=== PATIENT | female | born 1980 | race Caucasian/White ===

== ENCOUNTER 2019-09-08 15:53 | Emergency (ER) | payer BC, SELFPAY ==
[2019-09-08 16:00] VITALS: BP 143/89; PULSE 84; RESP 20; TEMP 37.1; O2SAT 100
--- NOTE | 2019-09-08 16:20 | ED.DENTAL ---
HPI - Dental/Oral General Chief complaint: Dental/Oral Stated complaint: toothache and glucose problems Time Seen by Provider: 09/08/19 16:20 Source: patient and RN notes reviewed Mode of arrival: ambulatory Limitations: no limitations History of Present Illness HPI Narrative: This is a 38 years old female presents to the office for an evaluation of dental pain for two weeks. Worse for the last three days. States, she needs a root canal done; but her dentist told her to go to [facility] to get antibiotic first. Since she is here; she would like to know if i can restart her diabetic medication/rechecking her A1C. She was diagnosed with diabetes about a year ago and went on medication for 4 months, she was doing well with diet and weight loss so her doctor took her off her diabetes medication. For the last couple months, she has been stressing out due to work and pandemic, she has not been feeling too well. She thinks her blood sugar is getting high again because she has been increase thirst and urinary frequency. She also states that she almost passed out at work about a month ago. Her workplace called EMT; whom check her out and told her that her blood sugar was high. She recalls it was around 180s; but she did not go to ER then because she elliot better after she rests. She is between doctor right now and she does not want to go back to her primary care doctor. Related Data Allergies Allergy/AdvReac Type Severity Reaction Status Date / Time morphine Allergy Dyspnea / Verified 09/08/19 16:14 SOB Review of Systems Review of Systems: Narrative: CONSTITUTIONAL: Denies fever ENT: Denies difficulty swallowing/drooling. Reports dental pain CARDIOVASCULAR: Denies chest pain RESPIRATORY: Denies cough GASTROINTESTINAL: Reports nausea and loose stools GENITOURINARY:Reports urinary frequency; denies urgency/painful/blood in the urine SKIN: Denies rash MUSCULOSKELETAL: Denies acute back pain NEUROLOGIC: Denies lightheaded PMFSH Past Medical History Medical History (Updated 09/08/19 @ 16:42 by DAVID Berrios) Diabetes mellitus, type II diet controlled Comments At time of signature, I agree with nursing past medical, surgical, social and family history. There is no relevant family history pertinent to the presenting complaint. Exam Narrative: Exam Narrative: GENERAL: This is a well-nourished, well-developed patient, in no apparent distress. EYES: Sclera and conjunctivae normal ENT: External ears normal. Nose and lips normal. Airway patent.The tooth in question is very carious and the gum is swollen and tender around it. There is no facial swelling, cervical or submandibular lymphadenopathy. CARDIOVASCULAR: Regular rate and rhythm without murmurs, gallops, or rubs. RESPIRATORY: Clear to auscultation. Breath sounds equal bilaterally. No wheezes, rales, or rhonchi. GASTROINTESTINAL: Abdomen soft, non-tender, nondistended. Bowel sounds are active. No hepato-splenomegaly, or palpable masses. No guarding. SKIN: warm, intact with no suspicious lesions or rash, good texture and turgor. NEURO: awake, alert, and oriented to person, place and time. There were no obvious focal neurologic abnormalities. Course Vital Signs Vital signs: Vital Signs Temperature 98.8 F 09/08/19 16:00 Pulse Rate 84 09/08/19 16:00 Respiratory Rate 20 09/08/19 16:00 Blood Pressure 143/89 H 09/08/19 16:00 Pulse Oximetry 100 09/08/19 16:00 Temperature 98.8 F 09/08/19 16:00 Pulse Rate 84 09/08/19 16:00 Respiratory Rate 20 09/08/19 16:00 Blood Pressure 143/89 H 09/08/19 16:00 Pulse Oximetry 100 09/08/19 16:00 MDM - Dental/Oral MDM Narrative Medical decision making narrative: Elevated BP noted: patient is informed that they may have pre-hypertension or hypertension based on a blood pressure reading in the department. I recommend the patient call the primary care provider of their choice this week to arrange follo
== END 2019-09-08 16:38 | disposition home or self-care (01) ==
PROVIDERS: Emergency Provider Nurse Practitioner
DX: K02.9 Dental caries, unspecified (principal); E11.9 Type 2 diabetes mellitus without complications
CPT/HCPCS: 99213; G0463

== ENCOUNTER 2019-10-18 11:51 | Emergency (ER) | payer BC, SELFPAY ==
[2019-10-18 11:59] VITALS: BP 140/82; PULSE 88; RESP 18; TEMP 36.7; O2SAT 99
--- NOTE | 2019-10-18 12:12 | ED.GENADULT ---
HPI - General Adult General Chief complaint: Eye Problems Stated complaint: chills/left eye swollen and red/general fatigue Time Seen by Provider: 10/18/19 12:13 Source: patient and RN notes reviewed Mode of arrival: ambulatory Limitations: no limitations History of Present Illness HPI narrative: This is a 38 years old female presented office for evaluation of left eye irritation for 2 days. Symptoms began watery and itchy eyes which she tried otc eyedrop with no relief. She also took some Iza because her eyelid was swollen which has helped reduced her eyelids swelling/redness. She also reported chills,headache, left eye pressures with photosensitivity. Currently, she wears contact lenses on her right eye because she could not find glasses. Related Data Allergies Allergy/AdvReac Type Severity Reaction Status Date / Time morphine Allergy Dyspnea / Verified 09/24/19 14:07 SOB Review of Systems Review of Systems: Narrative: CONSTITUTIONAL: Denies fever, chills EYES: Denies visual changes ENT: Denies rhinorrhea, congestion, sore throat, otalgia. CARDIOVASCULAR: Denies chest pain RESPIRATORY: Denies dyspnea,cough GASTROINTESTINAL: Denies abdominal pain, nausea, vomiting, diarrhea. GENITOURINARY: Denies urinary symptoms or discharge SKIN: Denies rash MUSCULOSKELETAL: Denies acute back pain NEUROLOGIC: Denies lightheaded All other systems reviewed are negative, except as documented in HPI. [facility] Past Medical History Medical History (Updated 10/18/19 @ 12:25 by DAVID Berrios) Anxiety Depression Diabetes mellitus, type II diet controlled HLD (hyperlipidemia) Surgical History Surgical History H/O shoulder surgery H/O tubal ligation Hx of tonsillectomy Family History Family History Grandparent Heart failure Grandparent Leukemia Grandparent Heart disease Social History Social History Smoking status: Never smoker Alcohol intake: current Substance use: never Comments At time of signature, I agree with nursing past medical, surgical, social and family history. There is no relevant family history pertinent to the presenting complaint. Exam Narrative: Exam Narrative: GENERAL: This is a well-nourished, well-developed patient, in no apparent distress. EYES: PERRL. EMOI. Right Sclera clear/white. Left conjunctive are injected with upper eyelid appear edematous without erythema. Eyelashes extension noted, patient said she had it done a month ago. EARS: External ears normal, auditory canals clear and without drainage, TMs normal without perforation. Hearing grossly intact. NOSE: External nose normal with no obvious nasal discharge, nares without redness, no rhinorrhea. THROAT: Mucous membranes moist, posterior pharynx clear. NECK: Neck supple, non-tender without lymphadenopathy, masses or thyromegaly. CARDIOVASCULAR: Regular rate and rhythm without murmurs, gallops, or rubs. RESPIRATORY: Clear to auscultation. Breath sounds equal bilaterally. No wheezes, rales, or rhonchi. GASTROINTESTINAL: Abdomen soft, non-tender, nondistended. Bowel sounds are active. No hepato-splenomegaly, or palpable masses. No guarding. SKIN: warm, intact with no suspicious lesions or rash, good texture and turgor. NEURO: awake, alert, and oriented to person, place and time. There were no obvious focal neurologic abnormalities. Steady gait Miguel Ángel Coma Scale Eye Opening: Spontaneous 4 Miguel Ángel Coma Scale Motor: Obeys Commands 6 Miguel Ángel Coma Scale Verbal: Oriented 5 Course Vital Signs Vital signs: Vital Signs Temperature 98.1 F 10/18/19 11:59 Pulse Rate 88 10/18/19 11:59 Respiratory Rate 18 10/18/19 11:59 Blood Pressure 140/82 10/18/19 11:59 Pulse Oximetry 99 10/18/19 11:59 Temperature 98.1 F 10/18/19 11:59 Pulse Rate 88 07/0
== END 2019-10-18 12:26 | disposition home or self-care (01) ==
PROVIDERS: Emergency Provider Nurse Practitioner; PCP Family Medicine
DX: H10.12 Acute atopic conjunctivitis, left eye (principal); E11.9 Type 2 diabetes mellitus without complications; E78.00 Pure hypercholesterolemia, unspecified
CPT/HCPCS: 99213; G0463

== ENCOUNTER 2019-11-02 14:39 | Emergency (ER) | payer BC, SELFPAY ==
--- NOTE | ~2019-11-02 | XR_ITS ---
XR chest 2V DATE: 11/02/2019 15:11 INDICATION: Left-sided chest pain, shortness of breath, syncope for a few months, worsening recently TECHNIQUE: PA and lateral views COMPARISON: None FINDINGS: Normal heart size. No hilar or mediastinal enlargement. No pulmonary infiltrate or consolid ation, pleural effusion or pulmonary vascular congestion or pneumothorax. Included skeletal structure s are unremarkable. IMPRESSION: Negative chest Reviewed, dictated and finalized at location A. IMPRESSION: Negative chest
--- NOTE | 2019-11-02 14:43 | ECG_ITS ---
Measurements Intervals [place] Rate: 78 P: 20 [place]: 168 QRS: 44 QRSD: 86 T: 31 QT: 338 QTc: 386 Interpretive Statements SINUS RHYTHM NONSPECIFIC ST ELEVATION IN ANTERIOR LEADS- PROBABLY EARLY REPOLARIZATION BORDERLINE ECG Electronically Signed On 11-02-2019 14:56:30 CDT by Hari Ely D.O.
[2019-11-02 14:44] VITALS: BP 136/92; PULSE 81; RESP 21; TEMP 36.9; O2SAT 100
[2019-11-02 14:47] VITALS: PULSE 81
[2019-11-02] MEDS: ASPIRIN 81 MG CHEWABLE TABLET 324 MG PO (14:52)
--- NOTE | 2019-11-02 15:05 | PC.NURSE ---
Pt to xray via stretcher with radiology
[2019-11-02 15:12] LABS: Basophils Absolute Auto 0.1 K/mm3 (0.0-0.1); Basophils Percent Auto 0.6 % (0.2-1.2); Eosinophils Absolute Auto 0.5 K/mm3 (0-0.3); Eosinophils Percent Auto 4.4 % (0-4.4); Hematocrit 37.8 % (37.0-47.0); Hemoglobin 12.6 g/dL (12.0-15.0); Immature Granulocyte Absolute 0.15 K/mm3 (0.00-0.031); Immature Granulocyte Percent A 1.3 % (0-0.5); Lymphocytes Absolute Auto 2.33 K/mm3 (0.9-3.2); Lymphocytes Percent Auto 20.8 % (18.3-44.2); Mean Corpuscular HGB Conc 33.3 g/dl (32-36); Mean Corpuscular Hemoglobin 29.9 pg (26-34); Mean Corpuscular Volume 89.8 fl (80-100); Mean Platelet Volume 11.8 fl (7.4-10.4); Monocytes Absolute Auto 0.7 K/mm3 (0.1-0.6); Monocytes Percent Auto 6.6 % (2.6-8.5); Neutrophils Absolute Auto 7.4 K/mm3 (1.3-6.7); Neutrophils Percent Auto 66.3 % (45.5-73.1); Platelet Count Result 321 k/mm3 (150-375); Red Blood Count 4.21 M/mm3 (4.2-5.4); White Blood Count 11.2 K/mm3 (4.5-10.0)
[2019-11-02 15:22] LABS: Blood Urea Nitrogen 15 mg/dL (7-17); Calcium 9.2 mg/dL (8.4-10.2); Carbon Dioxide 22 mmol/L (22-30); Chloride 105 mmol/L (98-107); Estimated CRCL calculation 141 ml/min; Estimated Glomerular Filt Rate > 60; Glucose 145 mg/dL (65-105); Potassium 4.2 mmol/L (3.4-5.0); Sodium 135 mmol/L (137-145)
[2019-11-02 15:30] LABS: NT Pro B Type Natriuretic Pept 29 PG/ML (5-100)
[2019-11-02 15:33] LABS: Troponin I < 0.012 ng/mL (0.000-0.034)
[2019-11-02 15:37] LABS: Partial Thromboplastin Time 27.2 SECONDS (22.3-36.8)
--- NOTE | 2019-11-02 15:45 | ED.GENADULT ---
HPI - General Adult General Chief complaint: Chest Pain <Javier Mitchell PA-C - Last Filed: 11/02/19 16:02> Stated complaint: short of breath, chest pain, syncope <Javier Mitchell PA-C - Last Filed: 11/02/19 16:02> Time Seen by Provider: 11/02/19 14:44 <Javier Mitchell PA-C - Last Filed: 11/02/19 16:02> Source: patient <Javier Mitchell PA-C - Last Filed: 11/02/19 16:02> Mode of arrival: ambulatory <Javier Mitchell PA-C - Last Filed: 11/02/19 16:02> Limitations: no limitations <Javier Mitchell PA-C - Last Filed: 11/02/19 16:02> History of Present Illness HPI narrative: Patient is a 38-year-old female who presents per request of primary care for evaluation of chest pain which she has been having off and on for the last 2 months patient is also been having syncopal episodes the last of which was this weekend patient was being evaluated by primary care today and was sent over for concern of her chest pain patient on arrival resting comfortably in the room knowing mild discomfort to the left chest patient denies any URI symptoms patient has not taken anything for her symptoms. Patient denies sick contacts. <Javier Mitchell PA-C - Last Filed: 11/02/19 16:02> Related Data Allergies/adverse reactions: Allergies Allergy/AdvReac Type Severity Reaction Status Date / Time morphine Allergy Dyspnea / Verified 11/02/19 14:49 SOB <Javier Mitchell PA-C - Last Filed: 11/02/19 16:02> Review of Systems Review of Systems: All systems reviewed & are unremarkable except as noted in HPI and below <Javier Mitchell PA-C - Last Filed: 11/02/19 16:02> [facility] Past Medical History Medical History: Medical History Anxiety Depression Diabetes mellitus, type II diet controlled HLD (hyperlipidemia) <Javier Mitchell PA-C - Last Filed: 11/02/19 16:02> Surgical History Surgical History: Surgical History H/O shoulder surgery H/O tubal ligation Hx of tonsillectomy <Javier Mitchell PA-C - Last Filed: 11/02/19 16:02> Social History Social History: Social History Smoking status: Never smoker Alcohol intake: current Substance use: never Gender identity (if verbalized by the patient): Female <Javier Mitchell PA-C - Last Filed: 11/02/19 16:02> Exam Narrative: Exam Narrative: GENERAL: Well-appearing, well-nourished, and in no acute distress. HEAD: Normocephalic, atraumatic. EYES: PERRLA and EOMI. ENT: Nares clear, no rhinorrhea or epistaxis. Mucous membranes moist. Oropharynx without tonsillar hypertrophy exudate or other lesions. Bilateral TMs pearly aldana nonbulging NECK: Supple. No adenopathy or masses. No carotid bruits or JVD CHEST: Clear to auscultation. No respiratory distress. No wheezes rales or rhonchi HEART: Regular rate and rhythm. No murmur heard. Normal peripheral pulses. ABDOMEN: Soft, nontender, nondistended, normal active bowel sounds. EXTREMITIES: Normal range of motion. No edema. SKIN: Warm, dry, no rash. NEURO: No focal deficits. Alert and oriented x3. Cranial nerves II through XII grossly intact PSYCH: Normal mood and affect. <Javier Mitchell PA-C - Last Filed: 11/02/19 16:02> Course Course Emergency Course: Patient in the room in no distress aware of case findings treatment plan and diagnosis <Javier Mitchell PA-C - Last Filed: 11/02/19 16:02> [employer]IOR ACCOUNT MANAGER/PA Physician Supervision Patient presented as a referral from a primary care physician's office for evaluation of bilateral leg edema, hypertension, with concern for some sort of new onset heart failure. At the time of assessment, ABCs are intact and vital signs are stable. Patient is not hypertensive. She has no pitting edema, calf pain or tenderness on exam. No chest wall tenderness. EKG w
[2019-11-02 15:46] LABS: D Dimer 0.37 ug/mL (<0.48)
[2019-11-02 16:52] VITALS: BP 129/76; PULSE 80; RESP 24; O2SAT 98
== END 2019-11-02 16:54 | disposition home or self-care (01) ==
PROVIDERS: Emergency Medicine Emergency Medical Services; Emergency Provider Emergency Medicine; PCP Family Medicine
DX: R07.9 Chest pain, unspecified (principal); E11.9 Type 2 diabetes mellitus without complications; E78.5 Hyperlipidemia, unspecified; R94.31 Abnormal electrocardiogram [ECG] [EKG]
CPT/HCPCS: 36415; 71046; 80048; 83880; 84484; 85025; 85380; 85610; 85730; 93005; 99284; A9270